=== PATIENT | male | born 1990 | race African-American/Black ===

== ENCOUNTER 2021-05-30 09:07 | Emergency (ER) | payer OTHER ==
[~2021-05-30] VITALS: Ht 182.9 cm; Wt 149.7 kg
[~2021-05-30 09:07] MED LIST: AMOXICILLIN 50500 M1 PO; ASA81BEC PO; CEFTIN500 MG PO; CELEBREX PO; CORDARONE PO; COUMADIN 5 MG TA5 M1 PO; CYANOCOBALAM1000 MCG PO; FISHOIL PO; FUROSEMIDE 20 M20 M1 PO; IBUPROFEN 600600 M1 PO; INDERAL LA PO; LANTUS SC; LANTUS100 UNIT/M SUBQ; LISINOPRIL40 MG PO; LISINOPRIL5 MG PO; LORTABELXR PO; METFORMIN; METFORMIN HCL500 MG PO; NORCO 5-325 TA1 EACH PO; NORVASC10 MG PO; NOVOLOG100 UNIT/1 SQ; PHENERGAN 25 MG25 M1 PO; PRAVACHOL40 MG PO; TESSALON PERLE100 MG PO; TYLENOL325 MG PO; UNKNOWN HTN MED
[2021-05-30] MEDS ORDERED: APIDRA (09:22)
[2021-05-30 11:10] VITALS: BP 147/98
== END 2021-05-30 11:06 | disposition home or self-care (01) ==
LOC: ER 09:07
DX: U07.1 COVID-19 (principal); E11.9 Type 2 diabetes mellitus without complications; I10 Essential (primary) hypertension; F90.9 Attention-deficit hyperactivity disorder, unspecified type; J45.909 Unspecified asthma, uncomplicated; Z79.84 Long term (current) use of oral hypoglycemic drugs